=== PATIENT | male | born 1980 | race Caucasian/White ===

== ENCOUNTER 2017-11-17 17:41 | Inpatient (IN) | payer MEDICAID ==
[~2017-11-17] VITALS: Ht 177.8 cm; Wt 105.2 kg
[2017-11-17 17:52] VITALS: Ht 177.8 cm; Wt 105.2 kg
[2017-11-17 18:42] LABS: BASOPHIL % 0.6 % (0-2); PLATELET COUNT 292 x10^3mcL (130-400); RED CELL DISTRIBUTION WIDTH 13.5 % (11.5-14.5)
[2017-11-17 19:18] LABS: CALCIUM 8.2 mg/dL (8.5-10.1); CARBON DIOXIDE 23.4 mmol/L (21-32); CHLORIDE SERUM 101 mmol/L (98-107); CREATININE SERUM 0.8 mg/dL (0.7-1.3); GFR1 > 60 mL/min; GLUCOSE SERUM 208 mg/dL (74-106); POTASSIUM SERUM 3.7 mmol/L (3.5-5.1); SODIUM SERUM 135 mmol/L (136-145)
[2017-11-17 19:22] LABS: ALBUMIN 3.4 g/dL (3.4-5.0); ALKALINE PHOSPHATASE 157 U/L (46-116); ALT/SGPT 24 U/L (16-63); AST/SGOT 12 U/L (15-37); BILIRUBIN TOTAL 0.3 mg/dL (0.20-1.00); TOTAL PROTEIN, SERUM 7.5 g/dL (6.4-8.2)
[2017-11-17 19:59] LABS: AMPHETAMINE QUAL UR NONE DETECTED (See below)
[2017-11-17] MEDS ORDERED: LASIX20 MG PO (19:59)
[2017-11-17] MEDS ORDERED: ALDACTONE25 MG PO (19:59)
[2017-11-17] MEDS ORDERED: CARVEDILOL12.5 M1 PO (20:00)
[2017-11-17] MEDS ORDERED: ENTRESTO1 TA2 PO (20:00)
[2017-11-17] MEDS ORDERED: KLOR-CON M1010 MEQ PO (20:02)
[2017-11-17] MEDS ORDERED: ATORVASTATIN CA40 M1 PO (20:50)
[2017-11-17 21:09] LABS: MAGNESIUM 1.7 mg/dL (1.8-2.4); PHOSPHOROUS 1.5 mg/dL (2.5-4.9)
[2017-11-17 21:17] LABS: T3 TOTAL 1.11 ng/mL
[2017-11-17 21:19] LABS: FREE T4 1.24 ng/dL (0.76-1.46); FREE THYROXINE INDEX 3.4 ug/dL (1.4-4.5); T4(THYROXINE) 8.9 ug/dL (4.7-13.3)
[2017-11-17 21:28] VITALS: BP 114/81
[2017-11-18 05:48] VITALS: BP 113/78
[2017-11-18 06:37] LABS: CALCIUM 8.1 mg/dL (8.5-10.1); CARBON DIOXIDE 24.6 mmol/L (21-32); CHLORIDE SERUM 104 mmol/L (98-107); CREATININE SERUM 0.6 mg/dL (0.7-1.3); GFR1 > 60 mL/min; GLUCOSE SERUM 168 mg/dL (74-106); MAGNESIUM 1.9 mg/dL (1.8-2.4); PHOSPHOROUS 2.6 mg/dL (2.5-4.9); POTASSIUM SERUM 3.7 mmol/L (3.5-5.1); SODIUM SERUM 136 mmol/L (136-145)
[2017-11-18 07:03] LABS: BASOPHIL % 0.5 % (0-2); PLATELET COUNT 294 x10^3mcL (130-400); RED CELL DISTRIBUTION WIDTH 13.5 % (11.5-14.5)
[2017-11-18 08:05] VITALS: BP 126/80
[2017-11-18 11:36] VITALS: BP 120/81
[2017-11-18 14:46] VITALS: BP 120/81
== END 2017-11-18 16:18 | disposition home or self-care (01) | DRG 205 ==
LOC: ED 17:41 → DU 19:39
PROVIDERS: Emergency Medicine; Internal Medicine
DX: I42.8 Other cardiomyopathies (principal); D68.69 Other thrombophilia; E11.65 Type 2 diabetes mellitus with hyperglycemia; E83.42 Hypomagnesemia; E83.39 Other disorders of phosphorus metabolism; F15.21 Other stimulant dependence, in remission; F14.11 Cocaine abuse, in remission; Z68.33 Body mass index [BMI] 33.0-33.9, adult; Z87.891 Personal history of nicotine dependence
CPT/HCPCS: 83880; 84439; Q0092